=== PATIENT | male | born 1995 | race Caucasian/White ===

== ENCOUNTER 2024-08-27 16:03 | Emergency (ER) | payer BC ==
[2024-08-27] MEDS: Lidocaine 1% with EPINEPHrine 1:100,000 10 ML MDV INJECT ONE (17:02)
[2024-08-27] MEDS: oxyCODONE 5 MG Tab PO ONE (17:04)
== END 2024-08-27 18:46 | disposition home or self-care (01) ==
LOC: MW.ED 16:03
DX: S20.211A Contusion of right front wall of thorax, initial encounter (principal); Z79.899 Other long term (current) drug therapy; W01.198A Fall on same level from slipping, tripping and stumbling with subsequent striking against other object, initial encounter; Y93.89 Activity, other specified
CPT/HCPCS: 71101; 99283; A9270